=== PATIENT | female | born 1955 | race Caucasian/White ===

== ENCOUNTER → 2018-02-19 12:28 | Outpatient (CLI) | payer OTHER, SELFPAY ==
--- NOTE | 2018-02-19 12:35 | DI.RAD.S_ITS ---
PROCEDURE: XR ELBOW RT 2V INDICATIONS: elbow pain TECHNIQUE: 2 views of the elbow were acquired. COMPARISON: None. FINDINGS: Bones: No fractures or dislocations. No suspicious bony lesions. Soft tissues: Joint effusion noted. No suspicious soft tissue calcifications. IMPRESSION: Nonspecific joint effusion. In the setting of ground level fall, occult fracture cannot be excluded. If symptoms and/or clinical suspicion for pathology persists, further assessment with repeat radiographs (7-10 days) or advanced imaging (e.g. CT, MRI or bone scan) may be helpful. Dictated by: Fabiana Kitchen MD, PhD on 02/19/2018 at 13:16 Approved by: Fabiana Kitchen MD, PhD on 02/19/2018 at 13:18
== END ==
PROVIDERS: Visit Provider Physician Assistant
DX: M25.521 Pain in right elbow (principal); M25.421 Effusion, right elbow
CPT/HCPCS: 73070

== ENCOUNTER 2020-06-04 13:09 | Emergency (ER) | payer OTHER, MEDICARE, SELFPAY ==
[2020-06-04] VITALS (40 sets, daily range): BP systolic 88–127; BP diastolic 52–73; PULSE 58–72; RESP 14–42; TEMP 36.6; O2SAT 97–99
--- NOTE | 2020-06-04 13:24 | DI.CT.S_ITS ---
PROCEDURE: CT CERVICAL SPINE WO CON INDICATIONS: Pain post fall TECHNIQUE: Noncontrast 3 mm thick sections acquired from the skull base to the T4 level. Sagittal and coronal reformats were then constructed. For radiation dose reduction, the following was used: automated exposure control, adjustment of mA and/or kV according to patient size. COMPARISON: None. FINDINGS: Image quality: Excellent. Bones: No fractures or dislocations. There is grade 1 anterolisthesis of C3 on C4. [id number] degenerative disc disease at C4-C5, C5-C6 and C6-C7. Bilateral facet arthropathy, most pronounced and moderate at C3-C4 on the left. Visualized superior ribs are intact. Soft tissues: Prevertebral soft tissues are normal in thickness. No paravertebral hematomas. No apical pneumothoraces. IMPRESSION: 1. No cervical spine fractures. 2. Degenerative disc and facet disease in cervical spine. Dictated by: Lawrence Reese M.D. on 06/04/2020 at 13:48 Approved by: Lawrence Reese M.D. on 06/04/2020 at 13:50
--- NOTE | 2020-06-04 13:24 | DI.RAD.S_ITS ---
PROCEDURE: XR WRIST LT MIN 3V INDICATIONS: psin sp fall TECHNIQUE: 3 views of the wrist were acquired. COMPARISON: None. FINDINGS: Bones: There is a comminuted distal radial metaphyseal fracture with impaction and volar angulation. No suspicious bony lesions. Soft tissues: No suspicious soft tissue calcifications. Soft tissue swelling. IMPRESSION: 1. Comminuted distal radial metaphyseal fracture with impaction and volar angulation. Dictated by: Lawrence Reese M.D. on 06/04/2020 at 13:53 Approved by: Lawrence Reese M.D. on 06/04/2020 at 13:54
--- NOTE | 2020-06-04 13:28 | ED_ITS ---
HPI - Fall <ROHAN Roque - Last Filed: 06/04/20 19:05> General Chief Complaint: Fall Stated Complaint: Fall Time Seen by Provider: 06/04/20 13:17 Source: patient and EMS Mode of arrival: EMS Limitations: no limitations History of Present Illness HPI Narrative: The patient is a 65 year old female who presents with a chief complaint of a ground level fall. She tripped over a speed bump, landed forward hit her chin on the pavement. She states that she was observed to be unresponsive after she fell. She states she hit her chin on the pavement arching her neck back. She also complains of left wrist pain. Denies any chest pain pelvic pain, she states she tried to get up but then felt very woozy and was not able to walk. She presents to the emergency department by EMS. She denies any neck or back pain. States overall she feels a little nauseous, a bit woozy, but declines any pain medications on arrival. Related Data Previous Rx's Medication Instructions Recorded hydrocodone-acetaminophen 1 tab PO Q4-6H PRN #14 tab 06/04/20 Allergies Allergy/AdvReac Type Severity Reaction Status Date / Time No Known Drug Allergies Allergy Verified 02/19/18 11:59 Review of Systems <ROHAN Roque - Last Filed: 06/04/20 19:05> Review of Systems Narrative: GENERAL: Denies chills, fatigue, malaise, fever, sweats. HEENT: Denies sinus pain, ear pain, sore throat, difficulty swallowing, dizziness. RESPIRATORY: Denies dyspnea, cough, wheezing, hemoptysis, sputum. CARDIOVASCULAR: Denies chest pain, palpitations, orthopnea, edema, GASTROINTESTINAL: Denies nausea, vomiting, abdominal pain, diarrhea, constipation, melena. : Denies dysuria, frequency, incontinence, hematuria, urinary retention. MUSCULOSKELETAL: See HPI SKIN: Denies rash, skin lesions, or other NEUROLOGIC: See HPI PSYCHIATRIC: No concerning psychosocial issues. 12 point review of systems is negative except for those stated above Patient History <ROHAN Roque - Last Filed: 06/04/20 19:05> Social History Smoking Status: Never smoker Smoking Status: Never smoker Exam <ROHAN Roque - Last Filed: 06/04/20 19:05> Narrative Exam Narrative: GENERAL: This is a well-nourished, well-developed patient, in no acute distress. HEAD: Atraumatic. Normocephalic. No temporal or scalp tenderness. EYES: Pupils equal round and reactive. Extraocular motions intact. No scleral icterus. No injection or drainage. ENT: Nose without bleeding, purulent drainage or septal hematoma. Wearing a mask Airway patent. NECK: Trachea midline. No JVD or lymphadenopathy. Supple, nontender, no meningeal signs. CARDIOVASCULAR: Regular rate and rhythm RESPIRATORY: Clear to auscultation. Breath sounds equal bilaterally. No wheezes, rales, or rhonchi. No cough. No increased respiratory effort. No accessory muscle use. GASTROINTESTINAL: Abdomen soft, non-tender, nondistended. No hepato- splenomegaly, or palpable masses. No guarding. EXTREMITIES: Swelling noted to left wrist, left ring finger with rings in place, wiggling left fingers.. Positive radial pulse left hand. BACK: Nontender without deformity or crepitance. No flank tenderness. NEURO: AOx3. SKIN: No rash or erythema on visible skin. Abrasion noted on chin. Initial Vital Signs Initial Vital Signs: Vital Signs Pulse Rate 60 06/04/20 13:15 Blood Pressure 98/59 L 06/04/20 13:15 Pulse Oximetry 99 06/04/20 13:15 <Eun Pérez DO - Last Filed: 06/04/20 19:43> Initial Vital Signs Initial Vital Signs: Vital Signs Pulse Rate 60 06/04/20 13:15 Blood Pressure 98/59 L 06/04/20 13:15 Pulse Oximetry 99 06/04/20 13:15 Scores <ROHAN Roque - Last Filed: 06/04/20 19:05> GCS Shauna coma scale eye opening: Spontaneous Shauna coma scale verbal response: Orientated [place] coma scale motor response: Obey commands Shauna coma scale total score: 15 Nexus Score for C-Spine Focal Neurologic deficit present: No Midline spinal tenderness present: No Altered level of conciousness present: No Intoxication present: No Distracting Injury Present: Yes Nexus Criteria for C-spine: 1 Course <ROHAN Roque - Last Filed: 06/04/20 19:05> Orders Ordered: ED Orders 06/04/20 13:24 CT cervical spine wo con Stat XR wrist LT min 3V Stat 06/04/20 13:37 CT head/brain wo con Stat 06/04/20 15:00 COVID19 -Nasal swab/Pre-Proc Stat 06/04/20 17:28 XR wrist LT 2V Stat Discontinued Medications Sodium Chloride (Normal Saline 0.9%) 500 mls @ 1,000 mls/hr IV BOLUS ONE Stop: 06/04/20 17:38 Last Infusion: 06/04/20 17:44 Dose: 0 mls/hr Documented by: Admin: 06/04/20 17:26 Dose: 1,000 mls/hr Documented by: RAMON Propofol (Propofol 200 Mg/20 Ml Vial) 80 mg 1 mg/kg (80 mg) IV NOW ONE Stop: 06/04/20 15:24 Last Admin: 06/04/20 16:50 Dose: 50 mg Documented by: RAMON Propofol (Propofol 200 Mg/20 Ml Vial) 80 mg 1 mg/kg (80 mg) IV NOW ONE Stop: 06/04/20 16:31 Vital Signs Vital signs: Vital Signs - 8 hr 06/04/20 13:15 06/04/20 13:20 06/04/20 15:32 Temperature 97.9 F Pulse Rate 60 64 67 Respiratory Rate 18 Blood Pressure 98/59 L 98/59 L Pulse Oximetry 99 97 06/04/20 15:35 06/04/20 15:36 06/04/20 15:40 Temperature Pulse Rate 63 61 62 Respiratory Rate 20 19 22 Blood Pressure 126/66 123/61 122/65 Pulse Oximetry 99 98 98 06/04/20 15:45 06/04/20 15:50 06/04/20 15:56 Temperature Pulse Rate 58 L 63 60 Respiratory Rate 23 22 23 Blood Pressure 116/63 118/64 122/59 L Pulse Oximetry 99 98 99 06/04/20 16:00 06/04/20 16:05 06/04/20 16:10 Temperature Pulse Rate 58 L 61 59 L Respiratory Rate 23 14 22 Blood Pressure 124/58 L 119/56 L 114/57 L Pulse Oximetry 99 99 98 06/04/20 16:15 06/04/20 16:20 06/04/20 16:25 Temperature Pulse Rate 62 58 L 64 Respiratory Rate 31 H 23 42 H Blood Pressure 119/58 L 114/55 L 106/57 L Pulse Oximetry 99 97 97 06/04/20 16:30 06/04/20 16:35 06/04/20 16:40 Temperature Pulse Rate 65 67 64 Respiratory Rate 26 H 18 26 H Blood Pressure 105/53 L 107/55 L 109/58 L Pulse Oximetry 98 06/04/20 16:45 06/04/20 16:50 06/04/20 16:55 Temperature Pulse Rate 69 72 64 Respiratory Rate 27 H 34 H 28 H Blood Pressure 115/57 L 122/58 L Pulse Oximetry 06/04/20 16:56 06/04/20 17:00 06/04/20 17:05 Temperature Pulse Rate 64 61 60 Respiratory Rate 29 H 30 H 22 Blood Pressure 88/53 L 96/52 L 98/55 L Pulse Oximetry 06/04/20 17:10 06/04/20 17:15 06/04/20 17:20 Temperature Pulse Rate 62 65 63 Respiratory Rate 14 29 H 30 H Blood Pressure 98/55 L 110/60 113/64 Pulse Oximetry 06/04/20 17:25 06/04/20 17:30 06/04/20 17:31 Temperature Pulse Rate 62 58 L 61 Respiratory Rate 22 22 16 Blood Pressure 116/57 L 110/57 L Pulse Oximetry 06/04/20 17:35 06/04/20 17:40 06/04/20 17:45 Temperature Pulse Rate 68 59 L 65 Respiratory Rate 30 H 22 29 H Blood Pressure 110/59 L 117/58 L 117/67 Pulse Oximetry 06/04/20 17:50 06/04/20 17:55 06/04/20 18:00 Temperature Pulse Rate 70 67 63 Respiratory Rate 25 H 23 20 Blood Pressure 127/73 115/70 123/63 Pulse Oximetry 06/04/20 18:05 06/04/20 18:10 06/04/20 18:15 Temperature Pulse Rate 71 62 60 Respiratory Rate 31 H 14 23 Blood Pressure 121/62 126/66 Pulse Oximetry 06/04/20 18:19 Temperature Pulse Rate 64 Respiratory Rate 16 Blood Pressure 111/63 Pulse Oximetry 98 <Eun Pérez, DO - Last Filed: 06/04/20 19:43> Orders Ordered: ED Orders 06/04/20 13:24 CT cervical spine wo con Stat XR wrist LT min 3V Stat 06/04/20 13:37 CT head/brain wo con Stat 06/04/20 15:00 COVID19 -Nasal swab/Pre-Proc Stat 06/04/20 17:28 XR wrist LT 2V Stat Discontinued Medications Sodium Chloride (Normal Saline 0.9%) 500 mls @ 1,000 mls/hr IV BOLUS ONE Stop: 06/04/20 17:38 Last Infusion: 06/04/20 17:44 Dose: 0 mls/hr Documented by: Admin: 06/04/20 17:26 Dose: 1,000 mls/hr Documented by: RAMON Propofol (Propofol 200 Mg/20 Ml Vial) 80 mg 1 mg/kg (80 mg) IV NOW ONE Stop: 06/04/20 15:24 Last Admin: 06/04/20 16:50 Dose: 50 mg Documented by: RAMON Propofol (Propofol 200 Mg/20 Ml Vial) 80 mg 1 mg/kg (80 mg) IV NOW ONE Stop: 06/04/20 16:31 Vital Signs Vital signs: Vital Signs - 8 hr 06/04/20 13:15 06/04/20 13:20 06/04/20 15:32 Temperature 97.9 F Pulse Rate 60 64 67 Respiratory Rate 18 Blood Pressure 98/59 L 98/59 L Pulse Oximetry 99 97 06/04/20 15:35 06/04/20 15:36 06/04/20 15:40 Temperature Pulse Rate 63 61 62 Respiratory Rate 20 19 22 Blood Pressure 126/66 123/61 122/65 Pulse Oximetry 99 98 98 06/04/20 15:45 06/04/20 15:50 06/04/20 15:56 Temperature Pulse Rate 58 L 63 60 Respiratory Rate 23 22 23 Blood Pressure 116/63 118/64 122/59 L Pulse Oximetry 99 98 99 06/04/20 16:00 06/04/20 16:05 06/04/20 16:10 Temperature Pulse Rate 58 L 61 59 L Respiratory Rate 23 14 22 Blood Pressure 124/58 L 119/56 L 114/57 L Pulse Oximetry 99 99 98 06/04/20 16:15 06/04/20 16:20 06/04/20 16:25 Temperature Pulse Rate 62 58 L 64 Respiratory Rate 31 H 23 42 H Blood Pressure 119/58 L 114/55 L 106/57 L Pulse Oximetry 99 97 97 06/04/20 16:30 06/04/20 16:35 06/04/20 16:40 Temperature Pulse Rate 65 67 64 Respiratory Rate 26 H 18 26 H Blood Pressure 105/53 L 107/55 L 109/58 L Pulse Oximetry 98 06/04/20 16:45 06/04/20 16:50 06/04/20 16:55 Temperature Pulse Rate 69 72 64 Respiratory Rate 27 H 34 H 28 H Blood Pressure 115/57 L 122/58 L Pulse Oximetry 06/04/20 16:56 06/04/20 17:00 06/04/20 17:05 Temperature Pulse Rate 64 61 60 Respiratory Rate 29 H 30 H 22 Blood Pressure 88/53 L 96/52 L 98/55 L Pulse Oximetry 06/04/20 17:10 06/04/20 17:15 06/04/20 17:20 Temperature Pulse Rate 62 65 63 Respiratory Rate 14 29 H 30 H Blood Pressure 98/55 L 110/60 113/64 Pulse Oximetry 06/04/20 17:25 06/04/20 17:30 06/04/20 17:31 Temperature Pulse Rate 62 58 L 61 Respiratory Rate 22 22 16 Blood Pressure 116/57 L 110/57 L Pulse Oximetry 06/04/20 17:35 06/04/20 17:40 06/04/20 17:45 Temperature Pulse Rate 68 59 L 65 Respiratory Rate 30 H 22 29 H Blood Pressure 110/59 L 117/58 L 117/67 Pulse Oximetry 06/04/20 17:50 06/04/20 17:55 06/04/20 18:00 Temperature Pulse Rate 70 67 63 Respiratory Rate 25 H 23 20 Blood Pressure 127/73 115/70 123/63 Pulse Oximetry 06/04/20 18:05 06/04/20 18:10 06/04/20 18:15 Temperature Pulse Rate 71 62 60 Respiratory Rate 31 H 14 23 Blood Pressure 121/62 126/66 Pulse Oximetry 06/04/20 18:19 Temperature Pulse Rate 64 Respiratory Rate 16 Blood Pressure 111/63 Pulse Oximetry 98 MDM - Fall <BRENDA RoqueP-BC - Last Filed: 06/04/20 19:05> Lab Data Labs: Lab Results 06/04/20 Range/Units 15:00 SARS-CoV-2 (PCR) Negative (Negative) Point of Care Testing Test Results Not applicable Imaging Data Extremity x-ray #1: Radiologist's Impression: [address] [place] [id number] ReportSigned Patient: Viri Zuleta EMR#: [id number]: 4Acct:[id number]/Sex: 65 / FDate of Service: 06/04/20Loc: EDAccession Number: [id number] Procedure: XR wrist LT 2V Ordering Provider: Eun Pérez D.O. PROCEDURE: XR WRIST LT 2V INDICATIONS: reduction TECHNIQUE: To views of the wrist were acquired. COMPARISON: [facility], , XR WRIST LT MIN 3V, 06/04/2020, 13:38. FINDINGS: Bones: There is comminuted fracture of the distal radial metaphysis with improved alignment after closed reduction. Mild impaction and volar angulation persists. Soft tissues: No suspicious soft tissue calcifications. IMPRESSION: Comminuted distal radial metaphyseal fracture. Dictated by: Lawrence Reese M.D. on 06/04/2020 at 17:47 Approved by: Lawrence Reese M.D. on 06/04/2020 at 17:48 CT scan - head: Radiologist's Impression: [address] [place] [id number] Scan ReportSigned Patient: Viri Zuleta EMR#: [id number]: 4Acct:[id number]/Sex: 65 / FDate of Service: 06/04/20Loc: EDAccession Number: [id number] Procedure: CT head/brain wo con Ordering Provider: Renita Bledsoe PROCEDURE: CT HEAD/BRAIN WO CON INDICATIONS: Ground level fall TECHNIQUE: Noncontrast 4.5 mm thick angled axial sections acquired from the foramen magnum to the vertex, with coronal and sagittal reformats. For radiation dose reduction, the following was used: automated exposure control, adjustment of mA and/or kV according to patient size. COMPARISON: None. FINDINGS: Image quality: There are motion artifacts at the skull base. CSF spaces: Basal cisterns are patent. No extra-axial fluid collections. The ventricles are symmetric in size and shape. Brain: No intracranial bleeds or masses. There is mild cerebral volume loss for age, with resultant ventricular and sulcal prominence. There are mild periventricular and deep white matter chronic small vessel ischemic changes. There is intracranial internal carotid artery atherosclerosis. Skull and face: Calvarium and visualized facial bones appear intact, without suspicious lesions. Sinuses: Visualized sinuses and mastoids are clear. IMPRESSION: 1. No acute intracranial abnormalities. 2. Mild cerebral volume loss and chronic microvascular ischemic changes. Dictated by: Lawrence Reese M.D. on 06/04/2020 at 13:46 Approved by: Lawrence Reese M.D. on 06/04/2020 at 13:47 Extremity x-ray #2: Radiologist's Impression: [address] [id number] ReportSigned Patient: Viri Zuleta EMR#: [id number]: 1955cct:[id number]/Sex: 65 / FDate of Service: 06/04/20Loc: EDAccession Number: [id number] Procedure: XR wrist LT min 3V Ordering Provider: Renita Bledsoe PROCEDURE: XR WRIST LT MIN 3V INDICATIONS: psin sp fall TECHNIQUE: 3 views of the wrist were acquired. COMPARISON: None. FINDINGS: Bones: There is a comminuted distal radial metaphyseal fracture with impaction and volar angulation. No suspicious bony lesions. Soft tissues: No suspicious soft tissue calcifications. Soft tissue swelling. IMPRESSION: 1. Comminuted distal radial metaphyseal fracture with impaction and volar angulation. Dictated by: Lawrence Reese M.D. on 06/04/2020 at 13:53 Approved by: Lawrence Reese M.D. on 06/04/2020 at 13:54 CT - cervical spine: Radiologist's Impression: [address] [place] [id number] Scan Rep ortSigned Patient: Viri Zuleta EMR#: [id number]: 4Acct:[id number]/Sex: 65 / FDate of Service: 06/04/20Loc: EDAccession Number: [id number] Procedure: CT cervical spine wo con Ordering Provider: Renita Bledsoe PROCEDURE: CT CERVICAL SPINE WO CON INDICATIONS: Pain post fall TECHNIQUE: Noncontrast 3 mm thick sections acquired from the skull base to the T4 level. Sagittal and coronal reformats were then constructed. For radiation dose reduction, the following was used: automated exposure control, adjustment of mA and/or kV according to patient size. COMPARISON: None. FINDINGS: Image quality: Excellent. Bones: No fractures or dislocations. There is grade 1 anterolisthesis of C3 on C4. Gdnrtbfh-jy-pchujs degenerative disc disease at C4-C5, C5-C6 and C6-C7. Bilateral facet arthropathy, most pronounced and moderate at C3-C4 on the left. Visualized superior ribs are intact. Soft tissues: Prevertebral soft tissues are normal in thickness. No paravertebral hematomas. No apical pneumothoraces. IMPRESSION: 1. No cervical spine fractures. 2. Degenerative disc and facet disease in cervical spine. Dictated by: Lawrence Reese M.D. on 06/04/2020 at 13:48 Approved by: Lawrence Reese M.D. on 06/04/2020 at 13:50 [facility] Narrative Medical decision making narrative: The patient is a 65-year-old female who presents after ground level fall. Given age over 65 and suspected injury, modified trauma activated upon arrival. She hit her head, feels woozy and nauseous with an obvious left wrist deformity. However she is neurovascular intact. As I cannot clear her C-spine through nexus criteria due to distracting injury, CT head and neck obtained with no acute findings. Patient does have chin abrasion, but no pain to palpation of jaw trismus. Tetanus up-to-date past year. Sedation and reduction of left wrist fracture completed by Dr Pérez. Patient was neurovascularly intact throughout and after procedure. I discussed at length follow-up with [facility] as well as primary care provider. [place] provided for pain. Discussed going back to ER for acute concerns such as decreased circulation in the hand. Patient has no questions or concerns upon discharge states understanding return precautions as well as follow-up care. Patient was discharged home with . <Eun Pérez, DO - Last Filed: 06/04/20 19:43> Lab Data Labs: Lab Results 06/04/20 Range/Units 15:00 SARS-CoV-2 (PCR) Negative (Negative) Point of Care Testing Test Results Not applicable Discharge Plan Departure Patient Disposition: Home Clinical Impression: Abrasion, Fall from ground level Fracture of left wrist Qualifiers: Encounter type: initial encounter Fracture type: closed Qualified Code(s): S62.102A - Fracture of unspecified carpal bone, left wrist, initial encounter for closed fracture Concussion Qualifiers: Encounter type: initial encounter Loss of consciousness presence/duration: without LOC Qualified Code(s): S06.0X0A - Concussion without loss of consciousness, initial encounter Instructions: DI for Concussion, DI for Wrist Fracture, How To Perform RICE (Rest, Ice, Compress, Elevate), How to Take Care of Your Splint Activity Restrictions/Additional Instructions: Thank you for trusting us with your care today. As discussed, your head and neck CTs came back with no acute findings. However given her exam I do believe that you have a concussion today. You do have a broken left wrist which we have reduced and splinted for you. Please follow-up with [facility]. Please come back to the emergency department for any acute concerns such as decreased circulation to your fingers. You have been prescribed narcotic medications. While on these medications you cannot drive or operate heavy machinery. Additionally you cannot sign legal documents or perform any duties such as this. Many people get constipated on narcotic medications so it would be advisable to discuss stool softeners with the pharmacist when you roller picker your prescription. Prescriptions: New hydrocodone-acetaminophen 5-325 mg tablet 1 tab PO Q4-6H PRN (Reason: pain) Qty: 14 RF: 0 Referrals: [facility] [Provider Group] [facility] [Outside] <Eun Pérez DO - Last Filed: 06/04/20 19:43> [facility] ED Attending Camilla Attestation: I was immediately available in the department for consultation. Documentation has been reviewed. I agree with assessment and plan.
--- NOTE | 2020-06-04 13:37 | DI.CT.S_ITS ---
PROCEDURE: CT HEAD/BRAIN WO CON INDICATIONS: Ground level fall TECHNIQUE: Noncontrast 4.5 mm thick angled axial sections acquired from the foramen magnum to the vertex, with coronal and sagittal reformats. For radiation dose reduction, the following was used: automated exposure control, adjustment of mA and/or kV according to patient size. COMPARISON: None. FINDINGS: Image quality: There are motion artifacts at the skull base. CSF spaces: Basal cisterns are patent. No extra-axial fluid collections. The ventricles are symmetric in size and shape. Brain: No intracranial bleeds or masses. There is mild cerebral volume loss for age, with resultant ventricular and sulcal prominence. There are mild periventricular and deep white matter chronic small vessel ischemic changes. There is intracranial internal carotid artery atherosclerosis. Skull and face: Calvarium and visualized facial bones appear intact, without suspicious lesions. Sinuses: Visualized sinuses and mastoids are clear. IMPRESSION: 1. No acute intracranial abnormalities. 2. Mild cerebral volume loss and chronic microvascular ischemic changes. Dictated by: Lawrence Reese M.D. on 06/04/2020 at 13:46 Approved by: Lawrence Reese M.D. on 06/04/2020 at 13:47
[2020-06-04 16:16] LABS: COVID19 -Nasal RAPID Negative (Negative)
[2020-06-04] MEDS: propofoL 200 MG/20 ML VIAL 80 MG IV (16:50)
--- NOTE | 2020-06-04 17:05 | PC.NURSE ---
tolerated sedation very well. verbal with provider the entire procedure however she did not respond to the manupulations of hew wrist with pain responses. Q5min vitals in vitals screen.
[2020-06-04] MEDS: SODIUM CHLORIDE 0.9% 500 ML 1000 ML IV (17:26)
--- NOTE | 2020-06-04 17:28 | DI.RAD.S_ITS ---
PROCEDURE: XR WRIST LT 2V INDICATIONS: reduction TECHNIQUE: To views of the wrist were acquired. COMPARISON: [facility], CR, XR WRIST LT MIN 3V, 06/04/2020, 13:38. FINDINGS: Bones: There is comminuted fracture of the distal radial metaphysis with improved alignment after closed reduction. Mild impaction and volar angulation persists. Soft tissues: No suspicious soft tissue calcifications. IMPRESSION: Comminuted distal radial metaphyseal fracture. Dictated by: Lawrence Reese M.D. on 06/04/2020 at 17:47 Approved by: Lawrence Reese M.D. on 06/04/2020 at 17:48
== END 2020-06-04 18:19 | disposition home or self-care (01) ==
PROVIDERS: Emergency Provider Nurse Practitioner Family
DX: S06.0X0A Concussion without loss of consciousness, initial encounter (principal); S62.102A Fracture of unspecified carpal bone, left wrist, initial encounter for closed fracture; S00.81XA Abrasion of other part of head, initial encounter; M54.2 Cervicalgia; M25.532 Pain in left wrist; R11.0 Nausea; W18.30XA Fall on same level, unspecified, initial encounter
CPT/HCPCS: 25605; 29125; 36415; 70450; 72125; 73100; 73110; 87635; 99284; 99285; C9803; J2704

== ENCOUNTER 2021-05-07 10:30 | Outpatient (RCR) | payer OTHER, SELFPAY ==
--- NOTE | 2021-04-16 16:47 | PT.OIE ---
Current Diagnoses Age-related osteoporosis without current pathological fracture (04/16/21) Visit Care Team Role Provider Type Aurora Tang MD Attending Provider Physician Family Provider Primary Care Provider Referring Provider Specialty: Family Practice Address: [address] [place] [address] [place], [facility] Email: [email or web address] Physical Therapy Initial Evaluation PT-OP-A Visit Information Start: 04/09/21 11:49 Freq: Status: Active Protocol: Document 04/16/21 13:45 AW (Rec: 04/09/21 11:59 AW [id number]) Out-Patient Physical Therapy Visit Information Visit Information Visit Type Initial Evaluation Visit Start Time 13:00 Visit Stop Time 13:45 Total Visit Minutes 45 Visit Number 04/05 Evaluation Information Evaluation Date 04/16/21 Precautions Precautions osteoporosis PT-OP-B Current Condition Start: 04/09/21 11:49 Freq: Status: Active Protocol: Document 04/16/21 13:45 AW (Rec: 04/09/21 11:56 AW [id number]) Current Condition History of Current Condition Onset Date February 2021 Current Complaints new dx of osteoporosis History of Current Condition Viri reports two falls in the past two years. One resulted in left distal radius fracture which was surgically treated. She had OT and was satisfied with her rehab. Pt is a regular walker and wants to stay that way. She walks three+ miles daily and especially [place]. Pt has history of vertigo ~30 years ago. She was successfully treated and has never had recurrence. Prior Treatments and Tests DEXA scan 03/05/21 with T score of -2.8 Future Testing and Treatments Planned None identified PT-OP-C Subjective Start: 04/09/21 11:49 Freq: Status: Active Protocol: Document 04/16/21 13:45 AW (Rec: 04/16/21 16:36 AW [id number]) OP-PT Subjective Patient Comments Patient Comments I'm hoping to understand more fully what kinds of exercises are safe and beneficial for osteoporosis. OP-PT Pain Assessment Pain Assessment Grid Paper Pain Assessment Grid Completed No: Pt denies pain PT-OP-D Balance Start: 04/09/21 11:49 Freq: Status: Active Protocol: Document 04/16/21 13:45 AW (Rec: 04/16/21 16:36 AW [id number]) Balance Tests mCTSIB mCTSIB Position 1 30 mCTSIB Position 2 30 mCTSIB Position 3 30 mCTSIB Position 4 30 but with increased sway PT-OP-E Functional Tests Start: 04/09/21 11:49 Freq: Status: Active Protocol: Document 04/16/21 13:45 AW (Rec: 04/16/21 16:36 AW [id number]) Functional Tests Functional Gait Assessment Score 28 Functional Gait Assessment Impairment 1 to <20% Impaired (Score 25- Rating 29) PT-OP-M Strength Start: 04/09/21 11:49 Freq: Status: Active Protocol: Document 04/16/21 13:45 AW (Rec: 04/16/21 16:36 AW [id number]) Hip Strength Hip Manual Muscle Testing bilat Flexion (L2) 4+ Good+ Extension (S1) 4+ Good+ Abduction 4+ Good+ External Rotation 5 Normal Internal Rotation 5 Normal Knee Strength Knee Manual Muscle Testing bilat Flexion (S2) 5 Normal Extension (L3) 4+ Good+ Ankle/Foot Strength Ankle and Foot Manual Muscle Testing bilat Dorsiflexion (L4) 5 Normal Plantarflexion (S1) 4+ Good+ PT-OP-Q Treatments Start: 04/09/21 11:49 Freq: Status: Active Protocol: Document 04/16/21 13:45 AW (Rec: 04/16/21 16:46 AW [id number]) Self-Care/Home Management Treatment Education Patient Education Posture,Safety Activities Self-Care/Home Management Activities Discussed evaluation findings and recommended plan of care to focus on safe loading to arrest bone loss vs improve bone density. Pt understands and agrees. PT-OP-T Assessment and Plan Start: 04/09/21 11:49 Freq: Status: Active Protocol: Document 04/16/21 13:45 AW (Rec: 04/16/21 16:46 AW [id number]) Physical Therapy Assessment Rehab Potential Rehabilitation Potential Excellent Evaluation Complexity Number of Personal Factors/Comorbidities 1-2 Number of Body Systems Impaired 1-2 Clinical Presentation at Evaluation Stable Impairments Impairments Posture,Strength Other Concerns Fall Risk low Goals Two Impairment strength Senior Care Goal (LTG) Pt will improve bilateral hip strength to 5/5 all planes in order to improve stability in gait. LTG Duration 4 visits - 05/19/21 One Impairment lacks HEP Senior Care Goal (LTG) Pt will understand principles of progressive loading to improve confidence in exercise dosing. LTG Duration 4 visits - 05/19/21 Assessment Summary Assessment Viri attends outpatient physical therapy with concerns regarding recent diagnosis of osteoporosis (T-score -2.8) and history of two falls - one of which resulted in distal radius fracture. She has mild strength deficits in bilateral hips. Her Functional Gait Assessment score of 28/30 is well within norms for her age- matched peers. Pt would benefit from a short plan of care focused on education and instruction in appropriate home exercise program to address and slow the rate of bone loss. Physical Therapy Plan Frequency and Duration Frequency of Treatment 1x/Week Duration of Treatment 1 month Plan of Care Start Date 04/16/21 Plan of Care End Date 05/19/21 Therapeutic Interventions Therapeutic Interventions Balance Training,Home Exercise Program,Self-Care/Home Management,Therapeutic Activities,Therapeutic Exercises Next Visit Focus/Plan Next Note Type Treatment Note Next Visit Plan functional strength; progressive resistance program
--- NOTE | 2021-04-16 16:47 | PT.OPPOC ---
Physical, Occupational & Speech Therapy At [facility] Current Diagnoses Age-related osteoporosis without current pathological fracture (04/16/21) Visit Care Team Role Provider Type Aurora Tang MD Attending Provider Physician Family Provider Primary Care Provider Referring Provider Specialty: Family Practice Address: [address] [place] [address], [phone] Email: [email or web address] Plan Of Care PT-OP-T Assessment and Plan Start: 04/09/21 11:49 Freq: Status: Active Protocol: Document 04/16/21 13:45 AW (Rec: 04/16/21 16:46 AW [id number]) Physical Therapy Assessment Rehab Potential Rehabilitation Potential Excellent Evaluation Complexity Number of Personal Factors/Comorbidities 1-2 Number of Body Systems Impaired 1-2 Clinical Presentation at Evaluation Stable Impairments Impairments Posture,Strength Other Concerns Fall Risk low Goals Two Impairment strength Fpc Goal (LTG) Pt will improve bilateral hip strength to 5/5 all planes in order to improve stability in gait. LTG Duration 4 visits - 05/19/21 One Impairment lacks HEP Fpc Goal (LTG) Pt will understand principles of progressive loading to improve confidence in exercise dosing. LTG Duration 4 visits - 05/19/21 Assessment Summary Assessment Viri attends outpatient physical therapy with concerns regarding recent diagnosis of osteoporosis (T-score -2.8) and history of two falls - one of which resulted in distal radius fracture. She has mild strength deficits in bilateral hips. Her Functional Gait Assessment score of 28/30 is well within norms for her age- matched peers. Pt would benefit from a short plan of care focused on education and instruction in appropriate home exercise program to address and slow the rate of bone loss. Physical Therapy Plan Frequency and Duration Frequency of Treatment 1x/Week Duration of Treatment 1 month Plan of Care Start Date 04/16/21 Plan of Care End Date 05/19/21 Therapeutic Interventions Therapeutic Interventions Balance Training,Home Exercise Program,Self-Care/Home Management,Therapeutic Activities,Therapeutic Exercises Next Visit Focus/Plan Next Note Type Treatment Note Next Visit Plan functional strength; progressive resistance program Plan of Care Dates Plan of Care Start Date 04/16/21 Plan of Care End Date 05/19/21 Electronically Signed by: Mahogany Ruiz PT 04/16/21 2282 Please Sign and Return: I have reviewed this Plan of Care and certify that the skilled therapy services above are required to meet the patient?s needs. Physician Signature Date Printed Name and Credentials Clinical Instructor Signature Printed Name and Credentials
--- NOTE | 2021-04-22 17:08 | PT.OTN ---
Addendum entered and electronically signed by Mahogany Ruiz, PT 04/22/21 17:34: Add to assessment: Pt has excessive knee valgus with sit to stand/hip hinge and benefits from external cues to correct. Original Note: Current Diagnoses Age-related osteoporosis without current pathological fracture (04/22/21) Physical Therapy Treatment Note PT-OP-A Visit Information Start: 04/09/21 11:49 Freq: Status: Active Protocol: Document 04/22/21 15:15 AW (Rec: 04/22/21 15:17 AW [id number]) Out-Patient Physical Therapy Visit Information Visit Information Visit Type Treatment Note Visit Start Time 14:30 Visit Stop Time 15:15 Total Visit Minutes 45 Visit Number 05/06 Evaluation Information Evaluation Date 04/16/21 Precautions Precautions osteoporosis PT-OP-B Current Condition Start: 04/09/21 11:49 Freq: Status: Active Protocol: Document 04/16/21 13:45 AW (Rec: 04/09/21 11:56 AW [id number]) Current Condition History of Current Condition Onset Date February 2021 Current Complaints new dx of osteoporosis History of Current Condition Viri reports two falls in the past two years. One resulted in left distal radius fracture which was surgically treated. She had OT and was satisfied with her rehab. Pt is a regular walker and wants to stay that way. She walks three+ miles daily and especially [place]. Pt has history of vertigo ~30 years ago. She was successfully treated and has never had recurrence. Prior Treatments and Tests DEXA scan 03/05/21 with T score of -2.8 Future Testing and Treatments Planned None identified PT-OP-C Subjective Start: 04/09/21 11:49 Freq: Status: Active Protocol: Document 04/22/21 15:15 AW (Rec: 04/22/21 15:17 AW [id number]) OP-PT Subjective Patient Comments Patient Comments Pt is ready to get to work, has been doing some reading on exercise for osteoporosis. PT-OP-D Balance Start: 04/09/21 11:49 Freq: Status: Active Protocol: Document 04/16/21 13:45 AW (Rec: 04/16/21 16:36 AW [id number]) Balance Tests mCTSIB mCTSIB Position 1 30 mCTSIB Position 2 30 mCTSIB Position 3 30 mCTSIB Position 4 30 but with increased sway PT-OP-E Functional Tests Start: 04/09/21 11:49 Freq: Status: Active Protocol: Document 04/16/21 13:45 AW (Rec: 04/16/21 16:36 AW [id number]) Functional Tests Functional Gait Assessment Score 28 Functional Gait Assessment Impairment 1 to <20% Impaired (Score 25- Rating 29) PT-OP-M Strength Start: 04/09/21 11:49 Freq: Status: Active Protocol: Document 04/16/21 13:45 AW (Rec: 04/16/21 16:36 AW [id number]) Hip Strength Hip Manual Muscle Testing bilat Flexion (L2) 4+ Good+ Extension (S1) 4+ Good+ Abduction 4+ Good+ External Rotation 5 Normal Internal Rotation 5 Normal Knee Strength Knee Manual Muscle Testing bilat Flexion (S2) 5 Normal Extension (L3) 4+ Good+ Ankle/Foot Strength Ankle and Foot Manual Muscle Testing bilat Dorsiflexion (L4) 5 Normal Plantarflexion (S1) 4+ Good+ PT-OP-Q Treatments Start: 04/09/21 11:49 Freq: Status: Active Protocol: Document 04/22/21 15:15 AW (Rec: 04/22/21 15:17 AW [id number]) Cardio Equipment Elliptical Other attempted but pt has difficulty coordinating; dc'ed Therapeutic Exercises Supine Exercises core activation Supine Exercise Name core activation Equipment Used nylon belt under L/S Comments isometric contraction with PPT ; progressed to BKFO Standing Exercises OH press Standing Exercise Name OH press Side bilateral Equipment Used 5# db Reps/Minutes 2x15 Comments cued ppt to reduce extension at TL jct GH rows Standing Exercise Name GH rows Resistance TB1 Reps/Minutes 2x12 Comments HEP pec stretch Standing Exercise Name pec stretch Equipment Used door frame Reps/Minutes 30 SH x 2 Comments shoulders <90 deg abduction Other Exercises sit to stand Comments started with sit <> stand technique; progressed to squat tap; HEP Self-Care/Home Management Treatment Education Patient Education Posture,Safety Activities Self-Care/Home Management Activities Education on research supporting high intensity resistance training for bone health. Provided copy of LIFTMOR paper. PT-OP-T Assessment and Plan Start: 04/09/21 11:49 Freq: Status: Active Protocol: Document 04/22/21 15:15 AW (Rec: 04/22/21 15:17 AW [id number]) Physical Therapy Assessment Goals Two Impairment strength Claim Clinician Goal (LTG) Pt will improve bilateral hip strength to 5/5 all planes in order to improve stability in gait. LTG Duration 4 visits - 05/19/21 One Impairment lacks HEP Claim Clinician Goal (LTG) Pt will understand principles of progressive loading to improve confidence in exercise dosing. LTG Duration 4 visits - 05/19/21 Assessment Summary Assessment Initiated squat and OH press training consistent with LIFTMOR protocol. Encouraged pt to do stomping as exercise and may consider adding small jumps in future appointments. Focused on bodyweight lifting today for tissue adaptation and will begin to load next session depending on form. Physical Therapy Plan Frequency and Duration Frequency of Treatment 1x/Week Duration of Treatment 1 month Plan of Care Start Date 04/16/21 Plan of Care End Date 05/19/21 Therapeutic Interventions Therapeutic Interventions Balance Training,Home Exercise Program,Self-Care/Home Management,Therapeutic Activities,Therapeutic Exercises Next Visit Focus/Plan Next Note Type Treatment Note Next Visit Plan re-check core facilitation; functional strength; progressive resistance program ; initiate balance progression
--- NOTE | 2021-04-29 17:24 | PT.OTN ---
Current Diagnoses Age-related osteoporosis without current pathological fracture (04/29/21) Physical Therapy Treatment Note PT-OP-A Visit Information Start: 04/09/21 11:49 Freq: Status: Active Protocol: Document 04/29/21 13:38 AW (Rec: 04/29/21 14:34 AW [id number]) Out-Patient Physical Therapy Visit Information Visit Information Visit Type Treatment Note Visit Start Time 13:45 Visit Stop Time 14:30 Total Visit Minutes 45 Visit Number 3/15 Evaluation Information Evaluation Date 04/16/21 Precautions Precautions osteoporosis PT-OP-B Current Condition Start: 04/09/21 11:49 Freq: Status: Active Protocol: Document 04/16/21 13:45 AW (Rec: 04/09/21 11:56 AW [id number]) Current Condition History of Current Condition Onset Date February 2021 Current Complaints new dx of osteoporosis History of Current Condition Viri reports two falls in the past two years. One resulted in left distal radius fracture which was surgically treated. She had OT and was satisfied with her rehab. Pt is a regular walker and wants to stay that way. She walks three+ miles daily and especially [place]. Pt has history of vertigo ~30 years ago. She was successfully treated and has never had recurrence. Prior Treatments and Tests DEXA scan 03/05/21 with T score of -2.8 Future Testing and Treatments Planned None identified PT-OP-C Subjective Start: 04/09/21 11:49 Freq: Status: Active Protocol: Document 04/29/21 13:38 AW (Rec: 04/29/21 14:34 AW [id number]) OP-PT Subjective Patient Comments Patient Comments I did squat taps but found it surprisingly hard not to sit down. Pt reports she read the LIFTMOR paper and found it reassuring for high-intensity resistance training. PT-OP-D Balance Start: 04/09/21 11:49 Freq: Status: Active Protocol: Document 04/16/21 13:45 AW (Rec: 04/16/21 16:36 AW [id number]) Balance Tests mCTSIB mCTSIB Position 1 30 mCTSIB Position 2 30 mCTSIB Position 3 30 mCTSIB Position 4 30 but with increased sway PT-OP-E Functional Tests Start: 04/09/21 11:49 Freq: Status: Active Protocol: Document 04/16/21 13:45 AW (Rec: 04/16/21 16:36 AW [id number]) Functional Tests Functional Gait Assessment Score 28 Functional Gait Assessment Impairment 1 to <20% Impaired (Score 25- Rating 29) PT-OP-M Strength Start: 04/09/21 11:49 Freq: Status: Active Protocol: Document 04/16/21 13:45 AW (Rec: 04/16/21 16:36 AW [id number]) Hip Strength Hip Manual Muscle Testing bilat Flexion (L2) 4+ Good+ Extension (S1) 4+ Good+ Abduction 4+ Good+ External Rotation 5 Normal Internal Rotation 5 Normal Knee Strength Knee Manual Muscle Testing bilat Flexion (S2) 5 Normal Extension (L3) 4+ Good+ Ankle/Foot Strength Ankle and Foot Manual Muscle Testing bilat Dorsiflexion (L4) 5 Normal Plantarflexion (S1) 4+ Good+ PT-OP-Q Treatments Start: 04/09/21 11:49 Freq: Status: Active Protocol: Document 04/29/21 13:38 AW (Rec: 04/29/21 14:34 AW [id number]) Gym Equipment Shuttle Balance red Details NBOS, tandem stance Reps/Duration 8 min Comments - NBOS with EO, EC - tandem stance EO + head turns Therapeutic Exercises Standing Exercises squat Standing Exercise Name squat - 90 deg and full depth Reps/Minutes 3x10 Comments HEP OH press Standing Exercise Name OH press Side bilateral Equipment Used 10# db Reps/Minutes 2x10; 1x8 to fatigue Comments increased wt for HEP Neuro Re-Education Treatment Balance Activities tandem stance Details tandem on carpet, firm Comments - head turns and nods - EC with // for prn support SLS Details SLS Surface carpet, firm Comments - head turns and nods Self-Care/Home Management Treatment Activities Self-Care/Home Management Activities Education on progressive resistance training and concept of overload. PT-OP-T Assessment and Plan Start: 04/09/21 11:49 Freq: Status: Active Protocol: Document 04/29/21 13:38 AW (Rec: 04/29/21 14:34 AW [id number]) Physical Therapy Assessment Goals Two Impairment strength Chcf Goal (LTG) Pt will improve bilateral hip strength to 5/5 all planes in order to improve stability in gait. LTG Duration 4 visits - 05/19/21 One Impairment lacks HEP Meat Team Member Goal (LTG) Pt will understand principles of progressive loading to improve confidence in exercise dosing. LTG Duration 4 visits - 05/19/21 Assessment Summary Assessment Progressed squat training to 90-degree and full depth. Pt able to coordinate arm swing as counter balance and is able to maintain spinal neutral with few cues. Progressed resistance in OH press and educated pt to change loading scheme to higher weight with 8 -12 reps every other day. Initiated balance training with heavy educational component on balance systems integration, Physical Therapy Plan Frequency and Duration Frequency of Treatment 1x/Week Duration of Treatment 1 month Plan of Care Start Date 04/16/21 Plan of Care End Date 05/19/21 Therapeutic Interventions Therapeutic Interventions Balance Training,Home Exercise Program,Self-Care/Home Management,Therapeutic Activities,Therapeutic Exercises Next Visit Focus/Plan Next Note Type Treatment Note Next Visit Plan re-check core facilitation; progressive resistance program - load squats, assess response to increased load in OH press; progress balance interventions to dynamic; consider plyometric training on shuttle recovery
--- NOTE | 2021-05-07 13:12 | PT.OTN ---
Current Diagnoses Age-related osteoporosis without current pathological fracture (05/07/21) Physical Therapy Treatment Note PT-OP-A Visit Information Start: 04/09/21 11:49 Freq: Status: Active Protocol: Document 05/07/21 10:34 AW (Rec: 05/07/21 11:20 AW [id number]) Out-Patient Physical Therapy Visit Information Visit Information Visit Type Treatment Note Visit Start Time 10:30 Visit Stop Time 11:15 Total Visit Minutes 45 Visit Number 15 Evaluation Information Evaluation Date 04/16/21 Precautions Precautions osteoporosis PT-OP-B Current Condition Start: 04/09/21 11:49 Freq: Status: Active Protocol: Document 04/16/21 13:45 AW (Rec: 04/09/21 11:56 AW [id number]) Current Condition History of Current Condition Onset Date February 2021 Current Complaints new dx of osteoporosis History of Current Condition Viri reports two falls in the past two years. One resulted in left distal radius fracture which was surgically treated. She had OT and was satisfied with her rehab. Pt is a regular walker and wants to stay that way. She walks three+ miles daily and especially [place]. Pt has history of vertigo ~30 years ago. She was successfully treated and has never had recurrence. Prior Treatments and Tests DEXA scan 03/05/21 with T score of -2.8 Future Testing and Treatments Planned None identified PT-OP-C Subjective Start: 04/09/21 11:49 Freq: Status: Active Protocol: Document 05/07/21 10:34 AW (Rec: 05/07/21 13:00 AW [id number]) OP-PT Subjective Patient Comments Patient Comments Pt expresses good understanding of reducing frequency, increasing intensity in home exercise. PT-OP-D Balance Start: 04/09/21 11:49 Freq: Status: Active Protocol: Document 04/16/21 13:45 AW (Rec: 04/16/21 16:36 AW [id number]) Balance Tests mCTSIB mCTSIB Position 1 30 mCTSIB Position 2 30 mCTSIB Position 3 30 mCTSIB Position 4 30 but with increased sway PT-OP-E Functional Tests Start: 04/09/21 11:49 Freq: Status: Active Protocol: Document 04/16/21 13:45 AW (Rec: 01/26/22 16:36 AW [id number]) Functional Tests Functional Gait Assessment Score 28 Functional Gait Assessment Impairment 1 to <20% Impaired (Score 25- Rating 29) PT-OP-M Strength Start: 04/09/21 11:49 Freq: Status: Active Protocol: Document 04/16/21 13:45 AW (Rec: 04/16/21 16:36 AW [id number]) Hip Strength Hip Manual Muscle Testing bilat Flexion (L2) 4+ Good+ Extension (S1) 4+ Good+ Abduction 4+ Good+ External Rotation 5 Normal Internal Rotation 5 Normal Knee Strength Knee Manual Muscle Testing bilat Flexion (S2) 5 Normal Extension (L3) 4+ Good+ Ankle/Foot Strength Ankle and Foot Manual Muscle Testing bilat Dorsiflexion (L4) 5 Normal Plantarflexion (S1) 4+ Good+ PT-OP-Q Treatments Start: 04/09/21 11:49 Freq: Status: Active Protocol: Document 05/07/21 10:34 AW (Rec: 05/07/21 13:11 AW [id number]) Therapeutic Exercises Standing Exercises jumping Standing Exercise Name jumping Comments cued soft knees; landing on whole foot paloff press Standing Exercise Name paloff press Side bilateral Resistance TB1 Reps/Minutes x10 deadlift Standing Exercise Name deadlift Equipment Used 10# db in each hand Reps/Minutes x12 Comments not added to HEP squat Standing Exercise Name squat - full depth with 10# db Resistance 10# db at chest height Reps/Minutes 3x10 Comments HEP; cues for heels down, knee alignment OH press Comments discussed progression and pt has good understanding; continue at home GH rows Standing Exercise Name GH rows Resistance TB2 Reps/Minutes 2x12 Comments HEP Neuro Re-Education Treatment Balance Activities gait with head turns Details gait with head turns Surface tile Reps/Duration 100' x 6 Comments turned head every three steps, every two steps with minimal path deviation tandem stance Details tandem on carpet, firm Comments - head turns and nods - EC with // for prn support SLS Details SLS Surface carpet, firm Comments - head turns and nods Self-Care/Home Management Treatment Activities Self-Care/Home Management Activities Continued education on squat form and loading scheme. PT-OP-T Assessment and Plan Start: 04/09/21 11:49 Freq: Status: Active Protocol: Document 05/07/21 10:34 AW (Rec: 05/07/21 11:20 AW [id number]) Physical Therapy Assessment Goals Two Impairment strength Cake Inspector Goal (LTG) Pt will improve bilateral hip strength to 5/5 all planes in order to improve stability in gait. LTG Duration 4 visits - 05/19/21 One Impairment lacks HEP Cake Inspector Goal (LTG) Pt will understand principles of progressive loading to improve confidence in exercise dosing. LTG Duration 4 visits - 05/19/21 Assessment Summary Assessment Added resistance (10# db held at chest) for squat today and introduced deadlift movement. Added standing row for HEP to improve postural control. Pt has good understanding all movements and is safe to progress beyond body weight activities. Physical Therapy Plan Frequency and Duration Frequency of Treatment 1x/Week Duration of Treatment 1 month Plan of Care Start Date 04/16/21 Plan of Care End Date 05/19/21 Therapeutic Interventions Therapeutic Interventions Balance Training,Home Exercise Program,Self-Care/Home Management,Therapeutic Activities,Therapeutic Exercises Next Visit Focus/Plan Next Note Type Treatment Note Next Visit Plan re-check core facilitation; progressive resistance program - load squats, assess response to increased load in OH press; progress balance interventions to dynamic; consider plyometric training on shuttle recovery
--- NOTE | 2022-04-14 12:58 | PT.OPDS ---
Current Diagnoses Age-related osteoporosis without current pathological fracture (05/07/21) Visit Care Team Role Provider Type Aurora Tang MD Attending Provider Physician Family Provider Primary Care Provider Referring Provider Specialty: Family Practice Address: [address] [place] [address] [place], [facility] Email: [email or web address] Visit Number Visit Number 07/04 Discharge Summary PT-OP-B Current Condition Start: 04/09/21 11:49 Freq: Status: Active Protocol: Document 04/16/21 13:45 AW (Rec: 04/09/21 11:56 AW [id number]) Current Condition History of Current Condition Onset Date February 2021 Current Complaints new dx of osteoporosis History of Current Condition Viri reports two falls in the past two years. One resulted in left distal radius fracture which was surgically treated. She had OT and was satisfied with her rehab. Pt is a regular walker and wants to stay that way. She walks three+ miles daily and especially enjoys [place]. Pt has history of vertigo ~30 years ago. She was successfully treated and has never had recurrence. Prior Treatments and Tests DEXA scan 03/05/21 with T score of -2.8 Future Testing and Treatments Planned None identified PT-OP-C Subjective Start: 04/09/21 11:49 Freq: Status: Active Protocol: Document 05/07/21 10:34 AW (Rec: 05/07/21 13:00 AW [id number]) OP-PT Subjective Patient Comments Patient Comments Pt expresses good understanding of reducing frequency, increasing intensity in home exercise. PT-OP-D Balance Start: 04/09/21 11:49 Freq: Status: Active Protocol: Document 04/16/21 13:45 AW (Rec: 04/16/21 16:36 AW [id number]) Balance Tests mCTSIB mCTSIB Position 1 30 mCTSIB Position 2 30 mCTSIB Position 3 30 mCTSIB Position 4 30 but with increased sway PT-OP-E Functional Tests Start: 04/09/21 11:49 Freq: Status: Active Protocol: Document 04/16/21 13:45 AW (Rec: 04/16/21 16:36 AW [id number]) Functional Tests Functional Gait Assessment Score 28 Functional Gait Assessment Impairment 1 to <20% Impaired (Score 25- Rating 29) PT-OP-M Strength Start: 04/09/21 11:49 Freq: Status: Active Protocol: Document 04/16/21 13:45 AW (Rec: 04/16/21 16:36 AW [id number]) Hip Strength Hip Manual Muscle Testing bilat Flexion (L2) 4+ Good+ Extension (S1) 4+ Good+ Abduction 4+ Good+ External Rotation 5 Normal Internal Rotation 5 Normal Knee Strength Knee Manual Muscle Testing bilat Flexion (S2) 5 Normal Extension (L3) 4+ Good+ Ankle/Foot Strength Ankle and Foot Manual Muscle Testing bilat Dorsiflexion (L4) 5 Normal Plantarflexion (S1) 4+ Good+ PT-OP-T Assessment and Plan Start: 04/09/21 11:49 Freq: Status: Active Protocol: Document 04/14/22 12:56 AW (Rec: 04/14/22 12:58 AW [id number]) Physical Therapy Plan Discharge Physical Therapy Discharge Reasons No Longer Attending PT Discharge Comments Viri was last seen in PT April 2021. She did well with and appreciated education on lifts associated with the LIFTMOR study to promote increased osteoblastic activity. Late discharge entered today for administrative purposes. Pt is discharged from this plan of care.
== END 2022-04-15 12:02 | disposition home or self-care (01) ==
LOC: PHYS 10:30
PROVIDERS: Family Provider Student in an Organized Health Care Education/Training Program; PCP Student in an Organized Health Care Education/Training Program; Referring Provider Student in an Organized Health Care Education/Training Program; Visit Provider Student in an Organized Health Care Education/Training Program
DX: M81.0 Age-related osteoporosis without current pathological fracture (principal)
CPT/HCPCS: 97110; 97112; 97161; 97535

== ENCOUNTER → 2023-04-21 10:15 | Outpatient (CLI) | payer OTHER, SELFPAY ==
--- NOTE | 2023-04-21 10:18 | DI.RAD.S_ITS ---
Bone Density Report Name: SAURABH ROCA Age: 68 Sex: Female Ethnicity: White Date of : 1955 Indication: postmenopausal; screening for osteoporosis; Referring Provider: JODY BAILON Study: Bone densitometry was performed. Exam Date: April 21, 2023 Accession number: [id number] Bone Density: Region BMD T-score Z-score Classification AP Spine(L1-L4) 0.829 -2.0 0.1 Osteopenia Femoral Neck (Left) 0.573 -2.5 -0.7 Osteoporosis Total Hip (Left) 0.691 -2.1 -0.6 Osteopenia Femoral Neck (Right) 0.548 -2.7 -0.9 Osteoporosis Total Hip (Right) 0.736 -1.7 -0.2 Osteopenia Total Hip Mean 0.714 -1.9 -0.4 Osteopenia World Health Organization criteria for BMD impression classify patients as: Normal (T-score at or above -1.0), Osteopenia (T-score between -1.0 and -2.5), or Osteoporosis (T-score at or below -2.5). 10-year Fracture Risk: FRAX not reported because: Some T-score for Spine Total or Hip Total or Femoral Neck at or below -2.5 Treated for osteoporosis Impression: The patient has osteoporosis, based on the Right Femoral Neck T-score. Discussion: It is important to ask patients whether they are taking their medications and to encourage continued and appropriate compliance with their osteoporosis therapies to reduce fracture risk. It is also important to review their risk factors and encourage appropriate calcium and vitamin D intakes, exercise, fall prevention and other lifestyle measures. Follow-Up: Consider a repeat BMD and Vertebral Fracture Assessment (VFA) exam in 2 years or sooner if medically necessary, to reassess this patient's status. Reported by: [facility] MARIO TUCKER M.D. on 04/21/2023 10:40:00 AM.
== END ==
LOC: RAD 10:16
PROVIDERS: Family Provider Student in an Organized Health Care Education/Training Program; PCP Internal Medicine; Referring Provider Internal Medicine; Visit Provider Internal Medicine
DX: M81.0 Age-related osteoporosis without current pathological fracture (principal)
CPT/HCPCS: 77080